=== PATIENT | male | born 1955 | race Caucasian/White ===

== ENCOUNTER 2019-08-13 10:33 | Day surgery (SDC) | payer MEDICARE, BC ==
[~2019-08-13] VITALS: Ht 185.4 cm; Wt 90.0 kg
[~2019-08-13 10:33] MED LIST: ATOR10TA9 PO; BACITRACIN 50,000 UNIT ONE; BUPIVACAINE/PF 0.25% ONE; BUPIVACAINE/PF 0.5% ONE; CETI10CA PO; EPINEPHRINE 1 MG/ML, 1ML ONE; IBUP-1623 PO; THROMBIN 5,000 UNIT VIAL TP ONE
[2019-08-13] MEDS ORDERED: LACTATED RINGERS 1,000 ML IV SCH (10:49)
[2019-08-13] MEDS ORDERED: MEPERIDINE/PF 25MG/ML,1ML IVPush PRN (11:00)
[2019-08-13] MEDS ORDERED: HYDROmorphone 2 MG/ML, 1ML IVPush PRN (11:00)
[2019-08-13] MEDS ORDERED: PROMETHAZINE 25 MG/ML, 1ML IV PRN (11:00)
[2019-08-13] MEDS ORDERED: GABAPENTIN 300 MG CAPSULE PO ONE (11:00)
[2019-08-13] MEDS ORDERED: hydrALAzine 20 MG/ML, 1ML IV PRN (11:00)
[2019-08-13] MEDS ORDERED: OXYcodone 5 MG/5 ML ORAL.SOL UDC PO PRN (11:00)
[2019-08-13] MEDS ORDERED: EPHEDRINE 50 MG/ML, 1ML IVPush PRN (11:00)
[2019-08-13] MEDS ORDERED: FENTANYL PF 100 MCG/2ML IV PRN (11:00)
[2019-08-13] MEDS ORDERED: ONDANSETRON 2MG/ML, 2ML IV PRN (11:00)
[2019-08-13] MEDS ORDERED: ACETAMINOPHEN 500 MG TABLET PO ONE (11:00)
[2019-08-13] MEDS ORDERED: LABETALOL 5MG/ML, 20ML IV PRN (11:00)
[2019-08-13] MEDS ORDERED: MIDAZOLAM 1 MG/ML, 2ML ONE (12:56)
[2019-08-13] MEDS ORDERED: FENTANYL PF 250 MCG/5ML ONE (12:56)
[2019-08-13] MEDS ORDERED: PROPOFOL 10 MG/ML, 20ML ONE (13:40)
[2019-08-13] MEDS ORDERED: CEFAZOLIN 1,000 MG ONE (13:40)
[2019-08-13] MEDS ORDERED: LIDOCAINE 2% 100MG/5ML SYRINGE ONE (13:40)
[2019-08-13] MEDS ORDERED: ONDANSETRON 2MG/ML, 2ML ONE (13:40)
[2019-08-13] MEDS ORDERED: SUCCINYLCHOLINE 20 MG/ML, 10ML ONE (13:40)
[2019-08-13] MEDS ORDERED: GLYCOPYRROLATE 0.2MG/1ML, 5ML ONE (13:40)
[2019-08-13] MEDS ORDERED: KETOROLAC 30 MG/1 ML ONE (13:40)
[2019-08-13] MEDS ORDERED: DEXAMETHASONE 4 MG/ML, 1ML ONE (13:40)
[2019-08-13] MEDS ORDERED: PHENYLEPHRINE 10 MG/ML ONE (13:40)
[2019-08-13] MEDS ORDERED: THROMBIN 5,000 UNIT VIAL TP ONE (14:16)
[2019-08-13] MEDS ORDERED: MAGNESIUM SULFATE 1 GM/2 ML ONE (14:41)
[2019-08-13] MEDS ORDERED: methylPREDNISolone SOD SUCC 125 MG/2 ML ONE (14:52)
[2019-08-13] MEDS ORDERED: FENTANYL PF 100 MCG/2ML ONE (14:53)
[2019-08-13] MEDS ORDERED: OXYC-432 PO (15:20)
[2019-08-13] MEDS ORDERED: TIZA2TAB2 PO (15:20)
== END 2019-08-13 18:00 | disposition home or self-care (01) ==
LOC: OUT 10:33
PROVIDERS: ATTEND Neurological Surgery
DX: M48.061 Spinal stenosis, lumbar region without neurogenic claudication (principal); M21.372 Foot drop, left foot; E78.00 Pure hypercholesterolemia, unspecified; G47.30 Sleep apnea, unspecified; Z72.89 Other problems related to lifestyle; Z79.1 Long term (current) use of non-steroidal anti-inflammatories (NSAID); Z79.899 Other long term (current) drug therapy; Z83.3 Family history of diabetes mellitus; Z82.61 Family history of arthritis; Z82.49 Family history of ischemic heart disease and other diseases of the circulatory system
CPT/HCPCS: 63030; 63035; 72100; J0330; J0690; J1100; J1885; J2250; J2370; J2405; J2704; J2930; J3010; J3475; J3490; J7120; J0171